=== PATIENT | male | born 1995 | race Caucasian/White ===

== ENCOUNTER 2022-05-09 23:11 | Emergency (ER) | payer SELFPAY ==
[~2022-05-09] VITALS: Ht 165.1 cm; Wt 70.3 kg
[2022-05-09 23:14] VITALS: BP 120/84
--- NOTE | 2022-05-09 23:15 | NUR ---
Dr. Frankel examining patient at [facility].
[2022-05-09 23:20] VITALS: BP 120/84
--- NOTE | 2022-05-09 23:20 | NUR ---
Patient refused to provide urine sample.
--- NOTE | 2022-05-10 01:06 | NUR ---
Called for blood drawn - no show in lobby.
--- NOTE | 2022-05-10 03:45 | NUR ---
PATIENT ELOPED FROM FACILITY. DISCHARGE INSTRUCTIONS NOT GIVEN TO PATIENT. DR. Frankel NOTIFIED.
== END 2022-05-10 03:45 | disposition left against medical advice (07) ==
LOC: MED 23:11
DX: R46.1 Bizarre personal appearance (principal)
CPT/HCPCS: 99283